=== PATIENT | male | born 1975 | race Caucasian/White ===

== ENCOUNTER 2017-06-08 21:51 | Emergency (ER) | payer MEDICARE, MEDICAID ==
[~2017-06-08] VITALS: Ht 170.2 cm; Wt 83.9 kg
[~2017-06-08 21:51] MED LIST: BENZ2TAB7 PO; DIPH50CA37 PO; ESOM20CA PO; HALO5TAB12 PO; LORA2TAB PO; MECL-102 PO; METO-306 PO; QUET400T PO
[2017-06-08] MEDS ORDERED: SODIUM BICARBONATE 4.2 % (NEUT) 5 ML VIAL TP ONE (22:00)
[2017-06-08] MEDS ORDERED: LORAZEPAM 2 MG/1 ML VIAL IV ONE (22:00)
[2017-06-08] MEDS ORDERED: CEFTRIAXONE 1 G in IV DEXTROSE 5% 50 ML IV ONE (22:00)
[2017-06-08] MEDS ORDERED: LIDOCAINE 1%-EPI 1:100,000 20 ML VIAL TP ONE (22:00)
[2017-06-08] MEDS ORDERED: HYDROMORPHONE 1 MG/1 ML DISP.SYRIN IV ONE (22:00)
[2017-06-08] MEDS ORDERED: HYDROMORPHONE 2 MG/1 ML DISP.SYRIN ONE (22:15)
[2017-06-08] MEDS ORDERED: LORAZEPAM 2 MG/1 ML VIAL ONE (22:16)
--- NOTE | 2017-06-08 22:50 | NUR ---
PT STATES HAS BEEN HAVING PALPITATIONS FOR A DAY OR SO.PT STATES FEELING ANXIOUS LATELY.PT IN TRIAGE TALKING ON PHONE.TOLD ME HE WOULD BE WITH ME SOON HE WAS DONE, PT IS ALERT, ORIENTED X 4, NO RESP DISTRESS NOTED OR REPORTED UPON ASSESSMENT.. MD AT BEDSIDE..
--- NOTE | 2017-06-08 23:40 | NUR ---
Patient discharged to home in stable conditon. Written and verbal after care instructions given. Patient verbalizes understanding of instructions. Pt walked out of ER unassisted with belongings at side...
[2017-06-09 00:24] VITALS: BP 117/94
== END 2017-06-09 00:26 | disposition home or self-care (01) ==
LOC: ER 21:55
DX: R00.2 Palpitations (principal); F41.9 Anxiety disorder, unspecified; F42.9 Obsessive-compulsive disorder, unspecified; F19.10 Other psychoactive substance abuse, uncomplicated; Z88.2 Allergy status to sulfonamides; Z91.040 Latex allergy status; Z91.011 Allergy to milk products
CPT/HCPCS: 93005; A4663; J1170; J2060

== ENCOUNTER 2017-12-30 23:08 | Emergency (ER) | payer MEDICARE, MEDICAID ==
[~2017-12-30] VITALS: Ht 167.6 cm; Wt 79.8 kg
[~2017-12-30 23:08] MED LIST changes: -METO-306 PO; +METO-358 PO
--- NOTE | 2017-12-30 23:32 | NUR ---
MONSTER AGUIAR at bedside for MSE
--- NOTE | 2017-12-30 23:40 | NUR ---
pt aaox3. pt brought himself to the ED via uber. pt c/o dizziness and body numbness. pt in no acute distress. denies pain. respirations even and unlabored
[2017-12-31 00:04] LABS: BASOPHILS % (AUTO) 0.4 % (0.0-2.0); EOSINOPHILS % (AUTO) 0.6 % (0.0-7.0); HEMATOCRIT 43.4 % (36.7-47.1); HEMOGLOBIN 14.9 g/dL (12.5-16.3); LYMPHOCYTES # (AUTO) 1.2 K/uL (20.0-40.0); LYMPHOCYTES % (AUTO) 20.6 % (20.5-51.5); MEAN CORPUSCULAR HGB CONC 34 g/dL (32.5-36.3); MEAN CORPUSCULAR VOLUME 87.3 fL (73.0-96.2); MONOCYTES # (AUTO) 0.5 K/uL (2.0-10.0); MONOCYTES % (AUTO) 9.1 % (0.0-11.0); NEUTROPHILS # (AUTO) 4.2 K/uL (1.8-8.9); NEUTROPHILS % (AUTO) 69.3 % (38.5-71.5); PLATELET COUNT (AUTO) 329 K/uL (152-348); RED BLOOD CELL COUNT(AUTO) 4.97 MIL/uL (4.06-5.63); WHITE BLOOD COUNT (AUTO) 6.1 K/uL (3.6-10.2)
[2017-12-31 00:10] LABS: ETHANOL < 3 MG/DL (0-0)
[2017-12-31 00:11] LABS: ACETAMINOPHEN < 2.0 ug/mL (10-30); ALANINE AMINOTRANSFERASE 21 U/L (16-63); ALKALINE PHOSPHATASE 129 U/L (50-136); ASPARTATE AMINOTRANSFERASE 18 U/L (15-37); BILIRUBIN,DIRECT 0.1 mg/dL (0.0-0.2); BILIRUBIN,TOTAL 0.4 mg/dL (0.2-1.0); CARBON DIOXIDE 26 mmol/L (21-32); CHLORIDE 102 mmol/L (98-107); CREATININE 1.1 mg/dL (0.6-1.3); GLUCOSE 109 mg/dL (74-106); POTASSIUM 3.2 mmol/L (3.5-5.1); TOTAL PROTEIN, SERUM 7.9 g/dL (6.4-8.2); UREA NITROGEN, BLOOD 13 mg/dL (7-18)
[2017-12-31] MEDS ORDERED: diphenhydrAMINE 50 MG/1 ML VIAL IM ONE (00:15)
[2017-12-31] MEDS ORDERED: HALOPERIDOL LACTATE 5 MG/1 ML VIAL IM ONE (00:15)
[2017-12-31 00:19] LABS: THYROID STIMULATING HORMONE 4.113 mIU/mL (0.358-3.740)
[2017-12-31] MEDS ORDERED: diphenhydrAMINE 50 MG/1 ML VIAL ONE (00:32)
[2017-12-31] MEDS ORDERED: HALOPERIDOL LACTATE 5 MG/1 ML VIAL ONE (00:32)
--- NOTE | 2017-12-31 01:26 | NUR ---
Patient discharged to home in stable conditon. Written and verbal after care instructions given. Patient verbalizes understanding of instructions.
[2017-12-31 01:27] VITALS: BP 151/107
== END 2017-12-31 01:29 | disposition home or self-care (01) ==
LOC: ER 23:09
DX: T42.6X1A Poisoning by other antiepileptic and sedative-hypnotic drugs, accidental (unintentional), initial encounter (principal); F12.10 Cannabis abuse, uncomplicated; F29 Unspecified psychosis not due to a substance or known physiological condition; F41.9 Anxiety disorder, unspecified; F42.9 Obsessive-compulsive disorder, unspecified; G43.A0 Cyclical vomiting, in migraine, not intractable; Z88.2 Allergy status to sulfonamides; Z90.49 Acquired absence of other specified parts of digestive tract; Y92.89 Other specified places as the place of occurrence of the external cause
CPT/HCPCS: 36415; 70030-TC; 84443; 85025; 85730; 93005; A4663; G0480; G0480-TC; J1200; J1630

== ENCOUNTER 2018-01-20 19:52 | Emergency (ER) | payer MEDICARE, MEDICAID ==
[~2018-01-20] VITALS: Ht 167.6 cm; Wt 81.6 kg
[2018-01-20] MEDS ORDERED: ONDANSETRON 4 MG/2 ML VIAL IM ONE (20:30)
[2018-01-20] MEDS ORDERED: HYDROMORPHONE 1 MG/1 ML DISP.SYRIN IM ONE (20:30)
[2018-01-20] MEDS ORDERED: ONDANSETRON 4 MG/2 ML VIAL ONE (20:35)
[2018-01-20] MEDS ORDERED: HYDROMORPHONE 2 MG/1 ML DISP.SYRIN ONE (20:35)
--- NOTE | 2018-01-20 20:59 | NUR ---
Gave pt RX and d/c instructions, verbalized understanding.
== END 2018-01-20 21:01 | disposition home or self-care (01) ==
LOC: ER 19:54
DX: M54.30 Sciatica, unspecified side (principal); Z88.2 Allergy status to sulfonamides; Z91.040 Latex allergy status; Z91.011 Allergy to milk products; Z79.899 Other long term (current) drug therapy; Z90.49 Acquired absence of other specified parts of digestive tract
CPT/HCPCS: 96372 ×2; 99284; A4663; J1170; J2405

== ENCOUNTER 2018-01-27 19:19 | Emergency (ER) | payer MEDICARE, MEDICAID ==
[~2018-01-27] VITALS: Ht 167.6 cm; Wt 81.6 kg
--- NOTE | 2018-01-27 19:40 | NUR ---
DR ASHWIN HOOK MD AT BEDSIDE FOR MSE.
[2018-01-27] MEDS ORDERED: KETOROLAC TROMETHAMINE 30 MG INJ IM ONE (19:45)
[2018-01-27] MEDS ORDERED: ONDANSETRON ODT 4 MG TAB.RAPDIS SL ONE (19:45)
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
[2018-01-27] MEDS ORDERED: ONDANSETRON ODT 4 MG TAB.RAPDIS ONE (19:54)
[2018-01-27] MEDS ORDERED: KETOROLAC TROMETHAMINE 30 MG INJ ONE (19:55)
--- NOTE | 2018-01-27 20:15 | NUR ---
PT STATES 0/10 PAIN FOLLOWING MEDICATION. DENIES N/V. Patient discharged to home in stable conditon. Written and verbal after care instructions given. Patient verbalizes understanding of instructions.
[2018-01-27 20:25] VITALS: BP 122/96
== END 2018-01-27 20:28 | disposition home or self-care (01) ==
LOC: ER 19:21
DX: M54.5 Low back pain (principal); Z90.49 Acquired absence of other specified parts of digestive tract; Z91.040 Latex allergy status; Z88.2 Allergy status to sulfonamides; Z91.011 Allergy to milk products; Z79.899 Other long term (current) drug therapy
CPT/HCPCS: A4663; J1885; Q0162

== ENCOUNTER 2018-02-08 23:45 | Emergency (ER) | payer MEDICARE, MEDICAID ==
[~2018-02-08] VITALS: Ht 167.6 cm; Wt 81.6 kg
[2018-02-09] MEDS ORDERED: ONDANSETRON ODT 4 MG TAB.RAPDIS ONE (00:25)
[2018-02-09] MEDS ORDERED: KETOROLAC TROMETHAMINE 60 MG INJ IM ONE ×2 (00:25→00:30)
[2018-02-09] MEDS ORDERED: ONDANSETRON ODT 4 MG TAB.RAPDIS SL ONE (00:30)
--- NOTE | 2018-02-09 00:35 | NUR ---
Patient discharged to home in stable conditon. Written and verbal after care instructions given. Patient verbalizes understanding of instructions. Patient reported a reduced amount of headache pain upon discharge. Patient able to ambulate unassisted with steady gait. Patient left with all personal belongings.
[2018-02-09 00:40] VITALS: BP 138/88
== END 2018-02-09 00:35 | disposition home or self-care (01) ==
LOC: ER 23:48
DX: F11.23 Opioid dependence with withdrawal (principal); Z88.2 Allergy status to sulfonamides; Z91.040 Latex allergy status; Z91.011 Allergy to milk products; Z79.899 Other long term (current) drug therapy; Z90.49 Acquired absence of other specified parts of digestive tract
CPT/HCPCS: A4663; J1885; Q0162

== ENCOUNTER 2018-02-13 15:58 | Emergency (ER) | payer MEDICARE, MEDICAID ==
[~2018-02-13] VITALS: Ht 170.2 cm; Wt 87.5 kg
--- NOTE | 2018-02-13 16:30 | NUR ---
PT REQUESTED TO HAVE JUICE AND STATES I'M NOT NAUSOUS NOW. OBSERVED DRINKING APPLE JUICE.
--- NOTE | 2018-02-13 16:58 | NUR ---
MONSTER AGUIAR AT THE BEDSIDE FOR MSE.
[2018-02-13] MEDS ORDERED: ONDANSETRON ODT 4 MG TAB.RAPDIS SL ONE (17:15)
[2018-02-13] MEDS ORDERED: ONDANSETRON ODT 4 MG TAB.RAPDIS ONE (17:15)
[2018-02-13] MEDS ORDERED: KETOROLAC TROMETHAMINE 30 MG INJ IM ONE (17:30)
[2018-02-13] MEDS ORDERED: KETOROLAC TROMETHAMINE 30 MG INJ ONE (17:36)
--- NOTE | 2018-02-13 17:58 | NUR ---
Patient discharged to home in stable conditon. Written and verbal after care instructions given. Patient verbalizes understanding of instructions.
[2018-02-13 18:08] VITALS: BP 122/84
== END 2018-02-13 18:00 | disposition home or self-care (01) ==
LOC: ER 15:59
DX: M79.1 Myalgia (principal); Z88.2 Allergy status to sulfonamides; Z91.040 Latex allergy status; Z91.011 Allergy to milk products; Z79.899 Other long term (current) drug therapy
CPT/HCPCS: A4663; J1885; Q0162

== ENCOUNTER 2018-03-03 21:19 | Emergency (ER) | payer MEDICARE, MEDICAID ==
[~2018-03-03] VITALS: Ht 170.2 cm; Wt 87.5 kg
[2018-03-03] MEDS ORDERED: CEPHALEXIN MONOHYDRATE 500 MG CAPSULE ONE (22:37)
--- NOTE | 2018-03-03 22:42 | NUR ---
Patient discharged to home in stable conditon. Written and verbal after care instructions given. Patient verbalizes understanding of instructions. Patient able to ambulate unassisted with steady gait. Patient left with all personal belongings.
[2018-03-03] MEDS ORDERED: CEPHALEXIN MONOHYDRATE 500 MG CAPSULE PO ONE (22:45)
[2018-03-03 22:46] VITALS: BP 135/104
== END 2018-03-03 22:45 | disposition home or self-care (01) ==
LOC: ER 21:21
DX: L03.012 Cellulitis of left finger (principal); Z88.2 Allergy status to sulfonamides; Z91.040 Latex allergy status; Z79.899 Other long term (current) drug therapy
CPT/HCPCS: A4663

== ENCOUNTER 2018-03-05 18:29 | Emergency (ER) | payer MEDICARE, MEDICAID ==
[~2018-03-05] VITALS: Ht 170.2 cm; Wt 87.5 kg
--- NOTE | 2018-03-05 18:47 | NUR ---
DR TERRELL AT BEDSIDE FOR EVAL.
--- NOTE | 2018-03-05 18:53 | NUR ---
Patient discharged to home in stable conditon. Written and verbal after care instructions given. Patient verbalizes understanding of instructions.
[2018-03-05] MEDS ORDERED: CLINDAMYCIN HCL 150 MG CAPSULE PO ONE (19:00)
[2018-03-05] MEDS ORDERED: CLINDAMYCIN HCL 150 MG CAPSULE ONE ×2 (19:05→19:08)
== END 2018-03-05 19:09 | disposition home or self-care (01) ==
LOC: ER 18:32
DX: L03.012 Cellulitis of left finger (principal); Z88.2 Allergy status to sulfonamides; Z91.011 Allergy to milk products; Z79.899 Other long term (current) drug therapy; Z91.040 Latex allergy status
CPT/HCPCS: A4663

== ENCOUNTER 2018-03-19 17:24 | Emergency (ER) | payer MEDICARE, MEDICAID ==
[~2018-03-19] VITALS: Ht 170.2 cm; Wt 86.2 kg
--- NOTE | 2018-03-19 19:00 | NUR ---
GINETTE Villa arrived to ER to evaluate patient and to speak with MD.
--- NOTE | 2018-03-19 19:06 | NUR ---
PATIENT WAS SEEN BY DR ANDRADE. XRAYS IN PROCESS. HANDOFF REPORT GIVEN TO MEAGAN MONK
--- NOTE | 2018-03-19 19:10 | NUR ---
Xray at bedside.
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
[2018-03-19] MEDS ORDERED: HYDROCODONE/APAP 5-325MG TABLET PO ONE (20:15)
[2018-03-19] MEDS ORDERED: HYDROCODONE/APAP 5-325MG TABLET ONE (20:17)
--- NOTE | 2018-03-19 21:08 | NUR ---
Notified Raudel Bui [facility] for psych eval. ETA 20min
--- NOTE | 2018-03-19 21:29 | NUR ---
Raudel Bui arrived to ER for patient psych eval
--- NOTE | 2018-03-19 22:00 | NUR ---
[facility] rehabilitation case coordinator Daly Villa left business card and case#[id number]. phone, Fax.
--- NOTE | 2018-03-19 22:15 | NUR ---
Raudel Bui at bedside for psych evaluation.
--- NOTE | 2018-03-19 22:39 | NUR ---
Patient discharged to home in stable conditon. Written and verbal after care instructions given. Patient verbalizes understanding of instructions. Patient ambulated out of ER with steady gait, no acute signs of distress, VSS, all belongings taken.
[2018-03-19 22:41] VITALS: BP 136/99
== END 2018-03-19 22:40 | disposition home or self-care (01) ==
LOC: ER 17:29
DX: S42.301G Unspecified fracture of shaft of humerus, right arm, subsequent encounter for fracture with delayed healing (principal); S92.911A Unspecified fracture of right toe(s), initial encounter for closed fracture; Z88.2 Allergy status to sulfonamides; Z91.040 Latex allergy status; Z91.011 Allergy to milk products; Z79.899 Other long term (current) drug therapy; V03.10XA Pedestrian on foot injured in collision with car, pick-up truck or van in traffic accident, initial encounter; Y92.410 Unspecified street and highway as the place of occurrence of the external cause; Y93.89 Activity, other specified; Y99.8 Other external cause status
CPT/HCPCS: 73130; 73630; A4663

== ENCOUNTER 2018-07-07 22:34 | Emergency (ER) | payer MEDICARE, MEDICAID ==
[~2018-07-07] VITALS: Ht 162.6 cm; Wt 83.5 kg
--- NOTE | 2018-07-07 23:05 | NUR ---
Dr. Cho at bedside for MSE.
[2018-07-07] MEDS ORDERED: IBUPROFEN 800 MG TABLET PO ONE (23:15)
[2018-07-07] MEDS ORDERED: CLONAZEPAM 0.5 MG TABLET PO ONE (23:15)
[2018-07-07] MEDS ORDERED: ONDANSETRON ODT 4 MG TAB.RAPDIS SL ONE (23:15)
[2018-07-07] MEDS ORDERED: CLONAZEPAM 0.5 MG TABLET ONE (23:20)
[2018-07-07] MEDS ORDERED: ONDANSETRON ODT 4 MG TAB.RAPDIS ONE (23:20)
[2018-07-07] MEDS ORDERED: IBUPROFEN 800 MG TABLET ONE (23:21)
--- NOTE | 2018-07-07 23:22 | NUR ---
Patient discharged to home in stable conditon. Written and verbal after care instructions given. Patient verbalizes understanding of instructions. Pt ambulated out of ER with steady gait, no acute signs of distress, VSS, all belongings taken.
[2018-07-07 23:24] VITALS: BP 136/89
== END 2018-07-07 23:24 | disposition home or self-care (01) ==
LOC: ER 22:36
DX: F41.9 Anxiety disorder, unspecified (principal); R51 Headache; Z90.49 Acquired absence of other specified parts of digestive tract; Z88.2 Allergy status to sulfonamides; Z91.040 Latex allergy status; Z91.011 Allergy to milk products
CPT/HCPCS: 99284; A4663; Q0162

== ENCOUNTER 2018-07-22 20:07 | Emergency (ER) | payer MEDICARE, MEDICAID ==
[~2018-07-22] VITALS: Ht 170.2 cm; Wt 81.6 kg
--- NOTE | 2018-07-22 20:15 | NUR ---
PT PRESENTS TO ED WITH C/O SOB AND ABDOMINAL DISCOMFORT. UPON INITIAL ASSESSMENT LUNG SOUNDS ARE CLEAR AND BREATH SOUNDS ARE EVEN AND UNLABORED. ABDOMEN IS DISTENDED AND TENDER. PT REPORTS INGESTING "ATIVAN AND SEROQUEL" PRIOR TO ARRIVING TO ED.
[2018-07-22] MEDS ORDERED: PANTOPRAZOLE SODIUM 40 MG VIAL IV ONE (20:30)
--- NOTE | 2018-07-22 20:43 | NUR ---
PT REFUSING IV SALINE LOCK. MADE AWARE.
[2018-07-22 20:47] LABS: BASOPHILS % (AUTO) 0.3 % (0.0-2.0); EOSINOPHILS # (AUTO) 0.1 K/uL (0.0-0.7); EOSINOPHILS % (AUTO) 2.4 % (0.0-7.0); HEMATOCRIT 37.3 % (36.7-47.1); LYMPHOCYTES # (AUTO) 1.1 K/uL (20.0-40.0); LYMPHOCYTES % (AUTO) 21.1 % (20.5-51.5); MEAN CORPUSCULAR HEMOGLOBIN 30.8 uug (23.8-33.4); MEAN CORPUSCULAR HGB CONC 35 g/dL (32.5-36.3); MEAN CORPUSCULAR VOLUME 88.3 fL (73.0-96.2); MONOCYTES # (AUTO) 0.6 K/uL (2.0-10.0); MONOCYTES % (AUTO) 10.4 % (0.0-11.0); NEUTROPHILS # (AUTO) 3.5 K/uL (1.8-8.9); NEUTROPHILS % (AUTO) 65.8 % (38.5-71.5); PLATELET COUNT (AUTO) 315 K/uL (152-348); RED BLOOD CELL COUNT(AUTO) 4.23 MIL/uL (4.06-5.63); WHITE BLOOD COUNT (AUTO) 5.4 K/uL (3.6-10.2)
--- NOTE | 2018-07-22 20:53 | NUR ---
PT IN ROUTE TO CT IN [facility] WITH TRANSPORTER
[2018-07-22 20:54] LABS: CREATININE 0.9 mg/dL (0.6-1.3); POTASSIUM 3.8 mmol/L (3.5-5.1)
[2018-07-22 21:00] LABS: BILIRUBIN,DIRECT 0.1 mg/dL (0.0-0.2); BILIRUBIN,TOTAL 0.3 mg/dL (0.2-1.0); TOTAL PROTEIN, SERUM 6.9 g/dL (6.4-8.2)
--- NOTE | 2018-07-22 21:10 | NUR ---
PT RETURNS FROM CT IN [facility] WITH TRANSPORTER
--- NOTE | 2018-07-22 21:17 | NUR ---
PROTONIX GIVEN PO PER MD VERBAL ORDERS
[2018-07-22] MEDS ORDERED: PANTOPRAZOLE SODIUM 40 MG TABLET.DR PO ONE ×2 (21:18→21:30)
--- NOTE | 2018-07-22 21:46 | NUR ---
PT IS CONTINUOUSLY OUT OF BED AND NON-COMPLIANT WITH MD ORDERS. PT WILL NOT REMAIN IN BED AFTER BEING REDIRECTED BACK TO BED NUMEROUS TIMES. PT GOT OUT OF BED AND GOT HIMSELF A SNACK AND DRINK AFTER BEING TOLD THAT ANY FOOD OR BEVERAGE IS INAPPROPRIATE UNTIL DIAGNOSTICS ARE COMPLETE. MD MADE AWARE. Addendum: 07/22/18 at 2151 by JCALLOWAY PT ALSO CONTINUOUSLY REMOVING BP CUFF AND PULSE OX WHILE IN BED.
--- NOTE | 2018-07-22 22:26 | NUR ---
Patient discharged to home in stable conditon. Patient denies shortness of breath and/or difficulties breathing prior to discharge. Written and verbal after care instructions given. Patient verbalizes understanding of instructions. Patient able to ambulate unassisted with a steady gait. Patient left with all personal belonings.
[2018-07-22] MEDS ORDERED: FLEET ENEMA 133 ML BOTTLE RC ONE ×2 (22:30)
[2018-07-22 22:46] VITALS: BP 124/84
== END 2018-07-22 22:26 | disposition home or self-care (01) ==
LOC: ER 20:09
DX: K59.00 Constipation, unspecified (principal); F41.9 Anxiety disorder, unspecified; Z90.49 Acquired absence of other specified parts of digestive tract; Z88.2 Allergy status to sulfonamides; Z91.040 Latex allergy status; Z91.011 Allergy to milk products
CPT/HCPCS: 36415; 70030-TC; 71045; 83690; 85025; 93005; A4663; J7030

== ENCOUNTER 2018-09-18 20:45 | Inpatient (IN) | payer MEDICARE, MEDICAID ==
[~2018-09-18] VITALS: Ht 170.2 cm; Wt 84.4 kg
[2018-09-18] MEDS ORDERED: MORPHINE SULFATE 2 MG/1 ML DISP.SYRIN ONE (22:00)
[2018-09-18] MEDS ORDERED: IV NORMAL SALINE 1000 ML BAG IV ONE (22:00)
[2018-09-18] MEDS ORDERED: MORPHINE SULFATE 2 MG/1 ML DISP.SYRIN IV ONE (22:00)
[2018-09-18] MEDS ORDERED: ONDANSETRON 4 MG/2 ML VIAL IV ONE (22:00)
[2018-09-18] MEDS ORDERED: ONDANSETRON 4 MG/2 ML VIAL ONE (22:00)
--- NOTE | 2018-09-18 22:05 | NUR ---
PASTING MACHINE OPERATOR AT BEDSIDE.
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
[2018-09-18 22:41] LABS: BASOPHILS % (AUTO) 0.8 % (0.0-2.0); EOSINOPHILS # (AUTO) 0.1 K/uL (0.0-0.7); EOSINOPHILS % (AUTO) 1.9 % (0.0-7.0); HEMATOCRIT 41.9 % (36.7-47.1); HEMOGLOBIN 14.4 g/dL (12.5-16.3); LYMPHOCYTES # (AUTO) 1.4 K/uL (20.0-40.0); MEAN CORPUSCULAR HEMOGLOBIN 30.5 uug (23.8-33.4); MEAN CORPUSCULAR HGB CONC 35 g/dL (32.5-36.3); MEAN CORPUSCULAR VOLUME 88.6 fL (73.0-96.2); MONOCYTES # (AUTO) 0.4 K/uL (2.0-10.0); MONOCYTES % (AUTO) 7.5 % (0.0-11.0); NEUTROPHILS # (AUTO) 3.6 K/uL (1.8-8.9); NEUTROPHILS % (AUTO) 64.8 % (38.5-71.5); PLATELET COUNT (AUTO) 317 K/uL (152-348); RED BLOOD CELL COUNT(AUTO) 4.73 MIL/uL (4.06-5.63); WHITE BLOOD COUNT (AUTO) 5.5 K/uL (3.6-10.2)
[2018-09-18 22:47] LABS: POTASSIUM 3.2 mmol/L (3.5-5.1)
[2018-09-18 22:52] LABS: BILIRUBIN,DIRECT 0.1 mg/dL (0.0-0.2); BILIRUBIN,TOTAL 0.4 mg/dL (0.2-1.0); TOTAL PROTEIN, SERUM 7.4 g/dL (6.4-8.2)
[2018-09-18] MEDS ORDERED: POTASSIUM BICARBONATE/CIT AC 25 MEQ TABLET.EFF ONE (23:13)
[2018-09-18] MEDS ORDERED: POTASSIUM BICARBONATE/CIT AC 25 MEQ TABLET.EFF PO ONE (23:15)
--- NOTE | 2018-09-18 23:37 | NUR ---
PT FOUND LAYING SUPINE ON THE FLOOR NEXT TO HIS BED. ASSISTED BACK TO BED, NO INJURIES NOTED. VSS. PT STATES HE FEELS DIZZY. BED IN LOW AND LOCKED POSITION W/ BILATERAL SIDERAILS UP. PT INFORMED NOT TO GET OUT OF BED ON HIS OWN.
--- NOTE | 2018-09-19 00:02 | NUR ---
PAGED [employer] FOR PANEL CALL. ATTEMPT 1.
--- NOTE | 2018-09-19 00:28 | NUR ---
GAVE ADMITTING REPORT TO ALESHIA FLETCHER.
[2018-09-19] MEDS ORDERED: ACETAMINOPHEN 325 MG TABLET PO PRN (00:45)
[2018-09-19] MEDS ORDERED: HYDROCODONE/APAP 5-325MG TABLET PO PRN (00:45)
[2018-09-19] MEDS ORDERED: MAGNESIUM HYDROXIDE 30 ML LIQUID UDC PO PRN (00:45)
[2018-09-19] MEDS ORDERED: IV NS 1000 ML 1,000 ML IV SCH (00:45)
[2018-09-19] MEDS ORDERED: MORPHINE SULFATE 4 MG/1 ML DISP.SYRIN IV PRN (00:45)
[2018-09-19] MEDS ORDERED: ONDANSETRON 4 MG/2 ML VIAL IV PRN (00:45)
[2018-09-19] MEDS ORDERED: Z GUARD REMEDY PASTE 57 GM TUBE TOP PRN (00:45)
[2018-09-19] MEDS ORDERED: ZOLPIDEM 5 MG TABLET PO PRN (00:45)
--- NOTE | 2018-09-19 00:52 | NUR ---
Pt. admitted to M/S 217, under care of Dr. MILLER Belongs List completed.
[2018-09-19 01:00] VITALS: BP 130/83
--- NOTE | 2018-09-19 01:45 | NUR ---
Patient arrived at 0050 via wheelchair; made comfortable in room; refused to take off clothes and change to hospital gown; orders seen and patient changed status to Mes Surg; most medications on home meds were not accurate and patient can not remember meds; pt asked me to page his psychiatrist, Dr Kti Shah to clarify his meds; he no longer takes cogentin, benadryl and haldol; he takes seroquel 100 mg with nexium, ativan 2 mg and metoprolol and clonidine 2mg PO HS; Dr Denny paged to clarify order ; awaiting call back.
--- NOTE | 2018-09-19 03:00 | NUR ---
Patient requested to be discharged against medical advice even not being seen by MD; he stated he can not be able to sleep with hospital bed even with his sleeping medications; Dr Denny to be made aware once he call back from previous paging for home meds clarification. 0230 patient signed AMA form and IV heplock discontinued; patient assisted to lobby and wait for his uber that will take him home. Addendum: 09/19/18 at 0351 by VERA VALDES RN UNABLE TO DO ASSESSMENT AND HISTORY; PATIENT WENT AMA.
[2018-09-19] MEDS ORDERED: PANTOPRAZOLE SODIUM 40 MG VIAL IV SCH (09:00)
[2018-09-19] MEDS ORDERED: METOPROLOL SUCCINATE XL 100 MG TAB.SR.24H PO SCH (21:00)
[2018-09-19] MEDS ORDERED: diphenhydrAMINE 50 MG CAPSULE PO SCH (21:00)
[2018-09-19] MEDS ORDERED: HALOPERIDOL 5 MG TABLET PO SCH (21:00)
[2018-09-19] MEDS ORDERED: MECLIZINE HCL 25 MG TABLET PO SCH (21:00)
[2018-09-19] MEDS ORDERED: Medication Not On Formulary EA (Lorazepam (Ativan) 2 MG) PO SCH (21:00)
== END 2018-09-19 02:30 | disposition left against medical advice (07) | DRG 641 ==
LOC: ER 20:45 → TELE 09-19 00:20 → MED 09-19 01:05
PROVIDERS: ADMIT Internal Medicine; ATTEND Internal Medicine
DX: E87.6 Hypokalemia (principal); R55 Syncope and collapse; R11.2 Nausea with vomiting, unspecified; R00.1 Bradycardia, unspecified; Z88.2 Allergy status to sulfonamides
CPT/HCPCS: 36415; 70030-TC; 74021; 83690; 85025; 93005; A4663; G0378; J2270; J2405; J7030

== ENCOUNTER 2018-09-25 23:48 | Inpatient (IN) | payer MEDICARE, MEDICAID ==
[~2018-09-25] VITALS: Ht 170.2 cm; Wt 87.7 kg
[2018-09-26] MEDS ORDERED: diphenhydrAMINE 50 MG/1 ML VIAL IV ONE
[2018-09-26] MEDS ORDERED: PROCHLORPERAZINE EDISYLATE 10 MG/2 ML VIAL IV ONE
--- NOTE | 2018-09-26 | NUR ---
Dr. Verduzco at bedside for MSE.
[2018-09-26] MEDS ORDERED: PROCHLORPERAZINE EDISYLATE 10 MG/2 ML VIAL ONE (00:07)
[2018-09-26] MEDS ORDERED: ZOLP10TA2 PO (00:21)
[2018-09-26] MEDS ORDERED: CLON2TAB PO (00:21)
--- NOTE | 2018-09-26 00:27 | NUR ---
Dr. Verduzco on panel call with Que Jha NP.
[2018-09-26] MEDS ORDERED: ONDANSETRON 4 MG/2 ML VIAL IV PRN (00:45)
[2018-09-26] MEDS ORDERED: ACETAMINOPHEN 650 MG SUPP.RECT RC PRN (00:45)
[2018-09-26] MEDS ORDERED: Z GUARD REMEDY PASTE 57 GM TUBE TOP PRN (00:45)
[2018-09-26] MEDS ORDERED: MAGNESIUM HYDROXIDE 30 ML LIQUID UDC PO PRN (00:45)
--- NOTE | 2018-09-26 00:54 | NUR ---
Report given to Gris MONK Medsurg.
[2018-09-26 01:05] VITALS: BP 134/89
--- NOTE | 2018-09-26 01:30 | NUR ---
RECEIVED PT FROM ER VIA WHEELCHAIR. UNDER . DX:ABDOMINAL PAIN. AWAKE, ALERT, AND ORIENTEDX3. PT SHOWS NO SIGNS OF DISTRESS.BELONGING LIST DONE. ADMISSION PROCESS AND CARE PLAN INITIATED. CUSTODIAL ASSESSMENT DONE. SAFETY AND COMFORT PROVIDED.PT TELLING CHARGE NURSE AND I THAT HE CAN'T SLEEP WITHOUT HIS MEDICATIONS AND THAT WE NEED TO PAGE HIS PSYCHIATRIST.CHARGE NURSE AND I CALLED DR FOIL CUTTER. DR TOLD US TO RETAIN WHAT HE JUST ORDERED FOR THE PT. CHARGE NURSE TALKED WITH THE PT. PT UNDERSTAND. PT STABLE. WILL CONTINUE TO MONITOR.
[2018-09-26] MEDS: IV NS 1000 ML 1,000 ML IV PRN ×2 (02:40→17:34)
[2018-09-26] MEDS: LORAZEPAM 2 MG/1 ML VIAL IV PRN ×3 (02:41→22:40)
[2018-09-26 03:32] VITALS: BP 103/59
[2018-09-26] MEDS: KETOROLAC TROMETHAMINE 30 MG INJ IVP PRN ×2 (04:51→11:11)
--- NOTE | 2018-09-26 06:31 | NUR ---
PT SLEPT COMFORTABLY. PT SHOWS NO SIGNS OF DISTRESS. PT GIVEN ATIVAN FOR ANXIETY AND KETOROLAC FOR PAIN. PRESCRIBED MEDICATION GIVEN AND PT TOLERATED IT WELL. SAFETY AND COMFORT PROVIDED. WILL ENDORSE TO DAYSHIFT NURSE FOR CONTINUITY OF CARE.
[2018-09-26 07:05] LABS: BASOPHILS % (AUTO) 0.3 % (0.0-2.0); EOSINOPHILS # (AUTO) 0.1 K/uL (0.0-0.7); EOSINOPHILS % (AUTO) 1.1 % (0.0-7.0); HEMATOCRIT 38.6 % (36.7-47.1); HEMOGLOBIN 13.4 g/dL (12.5-16.3); LYMPHOCYTES # (AUTO) 1.1 K/uL (20.0-40.0); LYMPHOCYTES % (AUTO) 21.5 % (20.5-51.5); MEAN CORPUSCULAR HEMOGLOBIN 30.4 uug (23.8-33.4); MEAN CORPUSCULAR HGB CONC 35 g/dL (32.5-36.3); MEAN CORPUSCULAR VOLUME 87.4 fL (73.0-96.2); MONOCYTES # (AUTO) 0.4 K/uL (2.0-10.0); MONOCYTES % (AUTO) 7.7 % (0.0-11.0); NEUTROPHILS # (AUTO) 3.7 K/uL (1.8-8.9); NEUTROPHILS % (AUTO) 69.4 % (38.5-71.5); PLATELET COUNT (AUTO) 294 K/uL (152-348); RED BLOOD CELL COUNT(AUTO) 4.42 MIL/uL (4.06-5.63); WHITE BLOOD COUNT (AUTO) 5.3 K/uL (3.6-10.2)
[2018-09-26 07:24] LABS: CREATININE 0.9 mg/dL (0.6-1.3); MAGNESIUM 1.6 mg/dL (1.8-2.4); PHOSPHOROUS 3.4 mg/dL (2.5-4.9); POTASSIUM 3.7 mmol/L (3.5-5.1)
[2018-09-26] MEDS ORDERED: PANTOPRAZOLE SODIUM 40 MG VIAL IV SCH (09:00)
[2018-09-26 11:53] VITALS: BP 124/67
[2018-09-26] MEDS: MAGNESIUM SULFATE/D5W 100 ML IV SCH ×2 (12:10→13:11)
[2018-09-26] MEDS ORDERED: MORPHINE SULFATE 2 MG/1 ML DISP.SYRIN IV PRN ×2 (14:30→18:30)
--- NOTE | 2018-09-26 14:48 | NUR ---
09/26/2018 @1400 VERIFIED FACESHEET INFORMATION WITH THE PATIENT. MR. CYNTHIA HUO WISHES ARE TO BE DISCHARGED BACK HOME WHEN MEDICALLY CLEARED [[id number], [place], [id number]]. PATIENT (C) [phone] (H) [phone]. FATHER NAME IS HEATHER (AYLIN HOU IN CASE OF AN EMERGENCY (C) [phone] (H)[phone]. PATIENT ALSO HAS A POA BY THE NAME OF VISHNU BALLARD, OFFICE [phone] (C) [phone] (CHANTELRN, CASE MANAGEMENT)
[2018-09-26 15:50] VITALS: BP 169/88
--- NOTE | 2018-09-26 19:30 | NUR ---
Patient in stable condition at start of shift. Family currently at the bedside. Vital signs within range. Pertinent assessment completed. Skin intact. C/O abdominal pain at beginning of shift. Will administer pain med & reassess pain level. A/Ox4 & able to make all his needs known. Noted with left AC 20G peripheral IV running with NS at 75cc/hr. No signs of infiltration noted at IV site. Per day shift RN, patient is scheduled for EGD in AM. Patient to be NPO. Bed in low position & locked. Call light within reach. Will continue to monitor through shift.
[2018-09-26 19:32] VITALS: BP 142/87
[2018-09-26] MEDS: PANTOPRAZOLE SODIUM 40 MG VIAL IV SCH (20:13)
[2018-09-26] MEDS ORDERED: KETOROLAC TROMETHAMINE 30 MG INJ IVP PRN (23:30)
--- NOTE | 2018-09-26 23:30 | NUR ---
Patient requesting to change morphine to toradol IVP. Stating that the morphine causes him SOB & hallucinations. Paged MD Fitz Lozoya and informed him of patient request. New order for Toradol 30mg IVP every 6 hours PRN pain. Will carry out order & continue to monitor through shift.
[2018-09-27] MEDS ORDERED: diphenhydrAMINE 50 MG/1 ML VIAL IV ONE (02:30)
[2018-09-27 03:48] VITALS: BP 148/91
[2018-09-27] MEDS: LORAZEPAM 2 MG/1 ML VIAL IV PRN (06:12)
[2018-09-27 06:39] LABS: CREATININE 0.8 mg/dL (0.6-1.3); POTASSIUM 3.5 mmol/L (3.5-5.1)
--- NOTE | 2018-09-27 06:42 | NUR ---
Patient stable during the shift. No acute distress noted. Vital signs within range. C/O abdominal pain during the night. Relieved with pain medication. C/O insomnia during the night. Patient requested Benadryl. [employer] centrifugal station operator Que Jha called and informed with new order for Benadryl 50mg IVP x1 dose only. All needs attended to promptly. All medications administered as per MD order. Kept NPO during shift. Safety measures maintained. Call light within reach. Will endorse to day shift nurse.
--- NOTE | 2018-09-27 07:39 | NUR ---
patient resting comfortably in bed at this time. no signs of distress. ivf running. going to EGD today with Dr. Ferro. NPO status for procedure. Consent signed, pre-op checklist completed. a/ox4. safety measures implemented. call light within reach.
--- NOTE | 2018-09-27 08:35 | NUR ---
non-administration medications: risperdal & cogentin due to decreased blood pressure. will continue to monitor.
[2018-09-27 08:36] VITALS: BP 95/62
[2018-09-27] MEDS: PANTOPRAZOLE SODIUM 40 MG VIAL IV SCH (09:10)
--- NOTE | 2018-09-27 11:01 | NUR ---
PATIENT LEFT FOR PROCEDURE AT THIS TIME. STABLE CONDITION. NEW IV-ACCESS STARTED LEFT AC #22. NO SIGNS OF DISTRESS. VITAL SIGNS STABLE.
[2018-09-27 11:28] VITALS: BP 125/88
[2018-09-27] MEDS ORDERED: FENTANYL CITRATE 100 MCG/2 ML AMPUL ONE (12:30)
[2018-09-27] MEDS ORDERED: MIDAZOLAM HCL 2 MG/2 ML VIAL ONE (12:30)
[2018-09-27 13:50] VITALS: BP 134/87
--- NOTE | 2018-09-27 13:50 | NUR ---
PATIENT RETURNED FROM EGD AT THIS TIME IN STABLE CONDITION, VITAL SIGNS STABLE. NO SIGNS OF DISTRESS. PATIENT RESTING COMFORTABLY IN BED. WILL CONTINUE TO MONITOR.
[2018-09-27] MEDS ORDERED: PROPOFOL 200 MG/20 ML BOTTLE IV ONE (15:19)
[2018-09-27] MEDS ORDERED: IV NORMAL SALINE 1000 ML BAG IV ONE (15:19)
[2018-09-27] MEDS ORDERED: SIMETHICONE 40 MG/0.6 ML 30 ML BOTTLE MC ONE (15:19)
--- NOTE | 2018-09-27 15:20 | NUR ---
PATIENT DISCHARGED AT THIS TIME IN STABLE CONDITION, NO SIGNS OF DISTRESS. PICKED UP BY HEATHER (PATIENT'S DAD) AND DEPARTED [facility] SAF[facility]. DISCHARGE INSTRUCTIONS/EDUCATION PROVIDED, DISCHARGE PACKET SIGNED BY PATIENT. ALL BELONGINGS RETURNED TO PATIENT. IV-ACCESS DISCONNECTED, ID-BAND TAKEN OFF. NEW PRESCRIPTION CALLED INTO PATIENT'S PREFERRED PHARMACY.
[2018-09-27] MEDS ORDERED: LIPASE/PROTEASE/AMYLASE 4200 UNITS CAPSULE.DR PO SCH (18:00)
== END 2018-09-27 15:20 | disposition home or self-care (01) | DRG 378 ==
LOC: ER 23:51 → MED 09-26 00:30
PROVIDERS: ADMIT Hospitalist
PROC: 0DB68ZX Excision of Stomach, Via Natural or Artificial Opening Endoscopic, Diagnostic (ICD-10-PCS; 2018-09-27)
PROC: 0DB98ZX Excision of Duodenum, Via Natural or Artificial Opening Endoscopic, Diagnostic (ICD-10-PCS; principal; 2018-09-27 12:29)
DX: K25.4 Chronic or unspecified gastric ulcer with hemorrhage (principal); F84.5 Asperger's syndrome; E87.1 Hypo-osmolality and hyponatremia; K27.4 Chronic or unspecified peptic ulcer, site unspecified, with hemorrhage; Z88.2 Allergy status to sulfonamides; Z91.040 Latex allergy status; Z91.011 Allergy to milk products; Z91.89 Other specified personal risk factors, not elsewhere classified; Z87.820 Personal history of traumatic brain injury; F32.9 Major depressive disorder, single episode, unspecified; F41.0 Panic disorder [episodic paroxysmal anxiety]; F17.210 Nicotine dependence, cigarettes, uncomplicated; E83.42 Hypomagnesemia; F10.11 Alcohol abuse, in remission; Y90.9 Presence of alcohol in blood, level not specified; K21.9 Gastro-esophageal reflux disease without esophagitis; G47.00 Insomnia, unspecified; A08.4 Viral intestinal infection, unspecified; Z86.03 Personal history of neoplasm of uncertain behavior
CPT/HCPCS: 36415; 83735; 84100; 85025; 88342; A4217; A4663; C9113; G0378; J0780; J1200; J1885; J2060; J2250; J2270; J3010; J3475; J3490; J7030

== ENCOUNTER 2018-12-02 18:55 | Emergency (ER) | payer MEDICARE, MEDICAID ==
[~2018-12-02] VITALS: Ht 170.2 cm; Wt 83.9 kg
[~2018-12-02 18:55] MED LIST changes: -BENZ2TAB7 PO; +CLON2TAB PO; -DIPH50CA37 PO; -HALO5TAB12 PO; -LORA2TAB PO; -MECL-102 PO; +ZOLP10TA2 PO
[2018-12-02] MEDS ORDERED: LORAZEPAM 0.5 MG TABLET ONE (19:42)
[2018-12-02] MEDS ORDERED: LORAZEPAM 0.5 MG TABLET PO ONE (19:45)
--- NOTE | 2018-12-02 19:51 | NUR ---
Patient discharged to home in stable conditon. Written and verbal after care instructions given. Patient verbalizes understanding of instructions. All belongings. Patient ambulated out of ER with stable gait.
[2018-12-02 19:52] VITALS: BP 110/80
== END 2018-12-02 19:50 | disposition home or self-care (01) ==
LOC: ER 18:59
DX: F41.9 Anxiety disorder, unspecified (principal); Z76.5 Malingerer [conscious simulation]; J06.9 Acute upper respiratory infection, unspecified; Z88.2 Allergy status to sulfonamides; Z91.040 Latex allergy status; Z91.011 Allergy to milk products; Z79.899 Other long term (current) drug therapy
CPT/HCPCS: 71045; A4663

== ENCOUNTER 2018-12-04 18:16 | Emergency (ER) | payer MEDICARE, MEDICAID ==
[~2018-12-04] VITALS: Ht 172.7 cm; Wt 83.9 kg
[2018-12-04] MEDS ORDERED: ONDANSETRON 4 MG/2 ML VIAL ONE (19:15)
[2018-12-04] MEDS ORDERED: ONDANSETRON 4 MG/2 ML VIAL IV ONE (19:15)
[2018-12-04] MEDS ORDERED: IV NORMAL SALINE 1000 ML BAG IV ONE (19:15)
--- NOTE | 2018-12-04 19:27 | NUR ---
PATIENT WAS SEEN BY DR STAPLES. PATIENT TOLD ME "YOU HAVE TO PUT ME IN RESTRAINTS IF YOU USE A NEEDLE ON ME. I NOTIFIED DR STAPLES AND HE SPOKE TO THE PATIENT AND TOLD HIM WE DONT USE RESTRAINTS FOR IV/LABS. PATIENT IS REFUSING THE IV NOW. DR STAPLES AWARE.
--- NOTE | 2018-12-04 19:31 | NUR ---
HAND OFF REPORT GIVEN TO JUANIS MONK
--- NOTE | 2018-12-04 19:52 | NUR ---
Received report from alberto RN, assumed care of pt., pt. back from CT, resting in bed, NAD
[2018-12-04 20:28] LABS: BASOPHILS # (AUTO) 0.1 K/uL (0.0-8.0); BASOPHILS % (AUTO) 1.3 % (0.0-2.0); EOSINOPHILS % (AUTO) 0.4 % (0.0-7.0); HEMATOCRIT 44.7 % (36.7-47.1); HEMOGLOBIN 15.5 g/dL (12.5-16.3); LYMPHOCYTES # (AUTO) 1.1 K/uL (20.0-40.0); LYMPHOCYTES % (AUTO) 14.4 % (20.5-51.5); MEAN CORPUSCULAR HEMOGLOBIN 30.2 uug (23.8-33.4); MEAN CORPUSCULAR HGB CONC 35 g/dL (32.5-36.3); MONOCYTES # (AUTO) 0.5 K/uL (2.0-10.0); MONOCYTES % (AUTO) 5.9 % (0.0-11.0); NEUTROPHILS # (AUTO) 6.1 K/uL (1.8-8.9); PLATELET COUNT (AUTO) 360 K/uL (152-348); RED BLOOD CELL COUNT(AUTO) 5.14 MIL/uL (4.06-5.63); WHITE BLOOD COUNT (AUTO) 7.8 K/uL (3.6-10.2)
[2018-12-04 20:38] LABS: POTASSIUM 3.5 mmol/L (3.5-5.1)
[2018-12-04 20:43] LABS: BILIRUBIN,DIRECT 0.1 mg/dL (0.0-0.2); BILIRUBIN,TOTAL 0.6 mg/dL (0.2-1.0); TOTAL PROTEIN, SERUM 8.2 g/dL (6.4-8.2)
--- NOTE | 2018-12-04 20:53 | NUR ---
Pt. resting in bed, states N/V has improved, IV fluids infusing, NAD
[2018-12-04] MEDS ORDERED: ACETAMINOPHEN 325 MG TABLET PO ONE (21:45)
[2018-12-04] MEDS ORDERED: IBUPROFEN 600 MG TABLET PO ONE (21:45)
[2018-12-04] MEDS ORDERED: IBUPROFEN 600 MG TABLET ONE (21:59)
[2018-12-04] MEDS ORDERED: ACETAMINOPHEN 325 MG TABLET ONE (21:59)
--- NOTE | 2018-12-04 22:03 | NUR ---
Pt. resting in bed, NAD
--- NOTE | 2018-12-04 22:19 | NUR ---
Patient discharged to home in stable conditon. Written and verbal after care instructions given. Patient verbalizes understanding of instructions. Pt. d/c per MD orders, all d/c papers signed, ID/IV removed, all belongings w/ pt., NAD, walks w/ steady gait, states he will call Uber for ride,
== END 2018-12-04 22:30 | disposition home or self-care (01) ==
LOC: ER 18:18
DX: R51 Headache (principal); R11.2 Nausea with vomiting, unspecified; Z90.49 Acquired absence of other specified parts of digestive tract; Z88.2 Allergy status to sulfonamides; Z91.040 Latex allergy status; Z91.011 Allergy to milk products; Z79.899 Other long term (current) drug therapy
CPT/HCPCS: 36415; 70450; 80048; 80076; 83690; 85025; 87400; 96361; 96374; 99284; J2405; A4663; J7030

== ENCOUNTER 2019-01-21 17:33 | Emergency (ER) | payer MEDICARE, MEDICAID ==
[~2019-01-21] VITALS: Ht 172.7 cm; Wt 83.9 kg
[2019-01-21 18:13] LABS: BASOPHILS % (AUTO) 0.3 % (0.0-2.0); EOSINOPHILS % (AUTO) 0.1 % (0.0-7.0); HEMOGLOBIN 13.4 g/dL (12.5-16.3); LYMPHOCYTES # (AUTO) 0.6 K/uL (20.0-40.0); LYMPHOCYTES % (AUTO) 9.7 % (20.5-51.5); MEAN CORPUSCULAR HEMOGLOBIN 28.6 uug (23.8-33.4); MEAN CORPUSCULAR HGB CONC 33 g/dL (32.5-36.3); MEAN CORPUSCULAR VOLUME 85.6 fL (73.0-96.2); MONOCYTES # (AUTO) 0.3 K/uL (2.0-10.0); MONOCYTES % (AUTO) 3.9 % (0.0-11.0); NEUTROPHILS # (AUTO) 5.7 K/uL (1.8-8.9); PLATELET COUNT (AUTO) 403 K/uL (152-348); RED BLOOD CELL COUNT(AUTO) 4.67 MIL/uL (4.06-5.63); WHITE BLOOD COUNT (AUTO) 6.6 K/uL (3.6-10.2)
[2019-01-21 18:27] LABS: BILIRUBIN,DIRECT 0.2 mg/dL (0.0-0.2); BILIRUBIN,TOTAL 0.8 mg/dL (0.2-1.0); CREATININE 0.9 mg/dL (0.6-1.3); POTASSIUM 3.7 mmol/L (3.5-5.1); TOTAL PROTEIN, SERUM 7.6 g/dL (6.4-8.2)
--- NOTE | 2019-01-21 19:11 | NUR ---
Patient discharged to home in stable conditon. Written and verbal after care instructions given. Patient verbalizes understanding of instructions. Pt ambulated out of ER w stable gait w no acute distress noted. Respirations even + unlabored. VSS.
[2019-01-21 19:14] VITALS: BP 136/77
== END 2019-01-21 19:15 | disposition home or self-care (01) ==
LOC: ER 17:33
DX: R11.2 Nausea with vomiting, unspecified (principal); R19.7 Diarrhea, unspecified; R06.02 Shortness of breath; Z88.2 Allergy status to sulfonamides; Z91.040 Latex allergy status; Z91.011 Allergy to milk products; Z90.49 Acquired absence of other specified parts of digestive tract; Z79.899 Other long term (current) drug therapy
CPT/HCPCS: 36415; 71045; 83690; 85025; 85730; 93005; A4663

== ENCOUNTER 2019-06-11 18:44 | Emergency (ER) | payer MEDICARE, MEDICAID ==
[~2019-06-11] VITALS: Ht 162.6 cm; Wt 81.2 kg
[2019-06-11] MEDS ORDERED: PHENAZOPYRIDINE HCL 100 MG TABLET ONE (19:30)
[2019-06-11] MEDS ORDERED: ONDANSETRON ODT 4 MG TAB.RAPDIS ONE (19:30)
[2019-06-11] MEDS: PHENAZOPYRIDINE HCL 100 MG TABLET PO ONE (19:32)
[2019-06-11] MEDS: ONDANSETRON ODT 4 MG TAB.RAPDIS SL ONE (19:32)
[2019-06-11 19:45] LABS: *BILIRUBIN,URIN NEGATIVE (NEGATIVE); *BLOOD, URINE NEGATIVE (NEGATIVE); *CLARITY,URINE CLEAR (CLEAR); *COLOR,URINE LIGHT YELLOW (YELLOW); *KETONES,URINE NEGATIVE (NEGATIVE); *UROBILINOGEN,URINE 0.2 E.U./dl (NORMAL); LEUKOCYTE ESTERASE ,URINE NEGATIVE (NEGATIVE); NITRITE, URINE NEGATIVE (NEGATIVE); PH,URINE 6.5 (5.0-8.0); UGLUCOSE NEGATIVE (NEGATIVE)
--- NOTE | 2019-06-11 19:50 | NUR ---
Patient states "I feel better now."
[2019-06-11 20:04] VITALS: BP 142/89
--- NOTE | 2019-06-11 20:07 | NUR ---
Patient discharged to home in stable conditon. Written and verbal after care instructions given. Patient verbalizes understanding of instructions. walked out of er with no distress noted
== END 2019-06-11 20:08 | disposition home or self-care (01) ==
LOC: ER 18:44
DX: R11.2 Nausea with vomiting, unspecified (principal); R30.0 Dysuria; Z79.899 Other long term (current) drug therapy; Z88.2 Allergy status to sulfonamides; Z91.040 Latex allergy status; Z91.011 Allergy to milk products
CPT/HCPCS: A4663; Q0162